=== PATIENT | male | born 2000 | race Caucasian/White ===

== ENCOUNTER 2021-07-19 00:33 | Emergency (ER) | payer MEDICAID ==
[~2021-07-19] VITALS: Ht 175.3 cm; Wt 61.2 kg
[2021-07-19 00:33] VITALS: BP_SYST 115
--- NOTE | 2021-07-19 01:40 | NUR ---
DR. MENDOZA AT BEDSIDE FOR EVALUATION.
[2021-07-19] MEDS ORDERED: LORazepam 2 MG/ML VIAL IM ONE (02:00)
[2021-07-19] MEDS ORDERED: HALOPERIDOL LACTATE 5 MG/ML VIAL IM ONE (02:00)
[2021-07-19] MEDS ORDERED: BENZTROPINE MESYLATE 2 MG/ 2 ML AMP IM ONE (02:00)
[2021-07-19 02:20] LABS: BASOPHILS % (AUTO) 0.4 % (0.0-2.0); EOSINOPHILS # (AUTO) 0.1 K/uL (0.0-0.4); EOSINOPHILS % (AUTO) 0.8 % (0.0-4.0); HEMATOCRIT 44.5 % (36-54); HEMOGLOBIN 15.1 g/dL (14.0-18.0); LYMPHOCYTES # (AUTO) 2.8 K/uL (1.0-5.5); MEAN CORPUSCULAR HEMOGLOBIN 29 pg (27-31); MEAN CORPUSCULAR HGB CONC 34 % (32-36); MEAN CORPUSCULAR VOLUME 84 fL (79.0-98.0); MONOCYTES # (AUTO) 0.9 K/uL (0.0-1.0); MONOCYTES % (AUTO) 7.6 % (1.7-9.3); NEUTROPHILS # (AUTO) 7.7 K/uL (1.8-7.7); NEUTROPHILS % (AUTO) 67.2 % (40.0-70.0); PLATELET COUNT (AUTO) 186 K/uL (130-430); WHITE BLOOD COUNT (AUTO) 11.5 K/uL (4.5-11.0)
--- NOTE | 2021-07-19 02:20 | NUR ---
Patient to ER bed 5 to gown for evaluation. Side rails up.
[2021-07-19 02:25] LABS: CALCIUM 8.9 mg/dL (8.4-11.0); CREATININE 1.15 mg/dL (0.55-1.30); POTASSIUM 3.5 mmol/L (3.5-5.1)
--- NOTE | 2021-07-19 02:30 | NUR ---
PATIENT AAOX4 BIB BLS FROM HOME C/O ALTERED MENTAL STATUS WITH YELLING AND AGGRESSIVE BEHAVIOR PER FAMILY. HISTORY OF BIPOLAR DISORDER. VSS. DENIES ANY SOB OR CHEST PAIN. WHEN PATIENT ARRIVED HE WAS YELLING AT STAFF AND PARAMEDICS ARRIVED WITH 4POINT HARD RESTRAINTS.
[2021-07-19 02:31] LABS: ALBUMIN 4.2 g/dL (3.4-4.8); TOTAL BILIRUBIN 0.6 mg/dL (0.0-1.0)
--- NOTE | 2021-07-19 05:00 | NUR ---
Patient resting quietly. No acute distress noted. Vital signs within normal range.
--- NOTE | 2021-07-19 07:17 | NUR ---
REPORT GIVEN TO RODRÍGUEZ SAUCEDO WHO WILL ASSUME ALL CARE OF PATIENT.
--- NOTE | 2021-07-19 07:30 | NUR ---
PT SLEEPING IN GURNEY, NO DISTRESS, V/S STABLE
--- NOTE | 2021-07-19 08:00 | NUR ---
PT PROVIDED WITH BREAKFAST TRAY
--- NOTE | 2021-07-19 08:31 | NUR ---
PT AWAKE ASKING FOR WATER, PROVIDED WATER. PT IS DROWSY AND DIFFICULT TO UNDERSTAND. V/S STABLE
--- NOTE | 2021-07-19 09:13 | NUR ---
SW PARENTS FOR STATUS UPDATE
--- NOTE | 2021-07-19 10:30 | NUR ---
PT SLEEPING IN GURNEY, NO DISTRESS, V/S STABLE
--- NOTE | 2021-07-19 11:30 | NUR ---
PT SLEEPING IN GURNEY, NO DISTRESS, V/S STABLE
--- NOTE | 2021-07-19 12:00 | NUR ---
PT PROVIDED WITH LUNCH TRAY
--- NOTE | 2021-07-19 12:20 | NUR ---
PT UP TO BATHROOM, STEADY GAIT
--- NOTE | 2021-07-19 12:39 | NUR ---
DR JOSEPH SPEAKING WITH PT FOR RE-EVAL
--- NOTE | 2021-07-19 12:53 | NUR ---
TELE PSYCH ORDERED.
--- NOTE | 2021-07-19 13:53 | NUR ---
TELEPSYCH ORDERED AGAIN, DUE TO CALLBACK
--- NOTE | 2021-07-19 15:27 | NUR ---
STATUS UPDATE GIVEN TO FATHER AND SISTER. FATHER INSISTING PT GET OLANZAPINE MONTHLY INJECTION WHILE HERE. PT HAS BEEN REFUSING TO TAKE MEDICATION AT HOME. INFORMED FAMILY THAT MD WOULD BE MADE AWARE AND CURRENLY AWAITING TELEPSYCH CONSULT FOR TREATMENT GUIDANCE.
--- NOTE | 2021-07-19 16:10 | NUR ---
SPOKE WITH PTS MOTHER AND EXPLAINED THAT WE ARE WAITING ON TELE PSYCH DR TO CALL. MOTHER DEMANDING THAT WE GIVE HIM INJECTION OLANZIPINE RIGHT AWAY, EXPLAINED TO MOTHER THAT PT HAS REFUSED MEDICATION AND WE CAN NOT INJECT HIM IF HE REFUSES. MOTHER STATES SHE UNDERSTANDS.
--- NOTE | 2021-07-19 16:40 | NUR ---
PT ON TELEPSYCH VIDEO CALL IN THE ROOM
--- NOTE | 2021-07-19 17:07 | NUR ---
DR. WARE SPEAKING TO DR. FOUNTAIN REGARDING TELEPYSCH CONSULT
--- NOTE | 2021-07-19 17:31 | NUR ---
DR FOUNTAIN SPEAKING WITH PTS MOTHER AND SISTER IN TRIAGE ROOM, PT GAVE CONSENT.
--- NOTE | 2021-07-19 17:36 | NUR ---
PT PROVIDES VERBAL CONSENT FOR DR. FOUNTAIN TO TALK TO HIS PARENTS ABOUT HIS CARE
--- NOTE | 2021-07-19 17:40 | NUR ---
PT SPEAKING WITH DR. WARE VIA TELEEUDOWEB CONSULT
--- NOTE | 2021-07-19 17:45 | NUR ---
DR. FOUNTAIN TALKING TO PT'S MOTHER AND SISTER FOR UPDATE
[2021-07-19 18:05] VITALS: BP_SYST 124
--- NOTE | 2021-07-19 18:06 | NUR ---
Patient given written and verbal discharge instructions and verbalizes understanding. ER MD discussed with patient the results and treatment provided. Patient in stable condition. ID arm band removed. NO Rx given. Patient educated on pain management and to follow up with PMD. Pain Scale 0/10. Opportunity for questions provided and answered. Medication side effect fact sheet provided.
== END 2021-07-19 18:06 | disposition home or self-care (01) ==
LOC: SED 00:33
DX: R45.1 Restlessness and agitation (principal); R46.89 Other symptoms and signs involving appearance and behavior; I49.8 Other specified cardiac arrhythmias
CPT/HCPCS: 36415; 80053; 85025; 93005; 96372; 99285; G0480; J0515; J1630; J2060; G0481; G0482

== ENCOUNTER 2023-09-04 13:38 | Emergency (ER) | payer MEDICAID ==
[~2023-09-04] VITALS: Ht 165.1 cm; Wt 72.6 kg
[2023-09-04 14:02] VITALS: BP_SYST 152; PULSE 99; RESP 22; TEMP 98.3; O2SAT 97
== END 2023-09-04 14:22 | disposition left against medical advice (07) ==
LOC: SED 13:38
DX: J45.901 Unspecified asthma with (acute) exacerbation (principal); J06.9 Acute upper respiratory infection, unspecified; R05.9 Cough, unspecified; R09.81 Nasal congestion; Z79.899 Other long term (current) drug therapy
CPT/HCPCS: 99281